=== PATIENT | female | born 1950 | race African-American/Black ===

== ENCOUNTER 2020-03-06 10:39 | Outpatient (CLI) | payer MEDICARE, SELFPAY ==
--- NOTE | ~2020-03-06 | XR_ITS ---
EXAMINATION: XR lg joint inject/asp w image DATE: 03/06/2020 11:39 INDICATION: Left hip osteoarthritis. TECHNIQUE: A time-out was performed to verify the patient's name, date of , and procedure to b e performed. The procedure including the risks, benefits, and alternatives was discussed with the pat ient. Risks discussed included bleeding and infection. The patient understood the risks and agreed to proceed. The skin overlying the left hip joint was prepped and draped in usual sterile fashion. An esthetic was administered with 1% lidocaine subcutaneously. A 22 G needle was advanced under fluoros copic guidance into the joint. Injection of 1 mL of Omnipaque 240 confirmed intra-articular position of the needle. Subsequently, injectate consisting of 3 mL 1% lidocaine and 2 mL 10 mg/mL Kenalog wa s instilled. The needle was removed and the entry site was cleaned and dressed. There were no immed iate complications. Fluoroscopy exposure time was 0.01 minutes. The total number of images was 2. FINDINGS: Real-time fluoroscopy demonstrates the needle in the left hip joint. IMPRESSION: 1. Left hip joint injection of local anesthetic and steroid . Reviewed, dictated and finalized at location A.
== END 2020-03-06 10:40 | disposition home or self-care (01) ==
PROVIDERS: Visit Provider Orthopaedic Surgery
DX: M16.0 Bilateral primary osteoarthritis of hip (principal)
CPT/HCPCS: 20610; 77002; J3301; Q9966

== ENCOUNTER 2021-06-17 06:58 | Outpatient (CLI) | payer MEDICARE, SELFPAY ==
--- NOTE | ~2021-06-17 | CT_ITS ---
EXAMINATION: CT abdomen pelvis w con EXAM DATE: 06/17/2021 08:07 INDICATION: Constipation, swelling, mass, lump. TECHNIQUE: Spiral CT of the abdomen and pelvis was performed following intravenous injection of 100 m L Omnipaque 350. Axial, coronal and sagittal images of the abdomen and pelvis were reviewed. The do se-length product (DLP) for this examination was 1354.45 mGy-cm. The exposure was tailored according to patient size (auto mA exposure control), and iterative reconstruction (ASIR) was used as addition al dose reduction technique. There is no prior study for comparison. FINDINGS: The appendix is dilated up to 9 mm with mild adjacent inflammation. Some irregularity, nodu lar appearance to the wall of the appendix distally. No obstructing stone, and no acute symptoms susp icious for appendicitis have been suggested. Additionally, typically with acute appendicitis the appe ndix appears obstructed and fluid-filled, which this does not. Appendix is located superficially righ t anterolateral aspect for clinical correlation. If patient does not have acute appendicitis, subacut e or chronic appendicitis or possibility of carcinoid of the appendix should be considered. No absces s or pericecal lymphadenopathy. Regardless, histologic correlation may be indicated. The liver, spleen, adrenal glands and pancreas are unremarkable. Gallbladder is unremarkable. No bi liary obstruction. Portal and splenic veins are patent. Kidneys enhance symmetrically. There is no hydronephrosis. Several left renal cysts up to 3 cm. The uterus is not identified and has likely be en surgically resected. Small cystic left ovarian lesion measuring 3.2 cm, possible cystic neoplasm, but would favor benign histology. The bladder is unremarkable. There is no retroperitoneal or pelvi c lymphadenopathy. There is mild scattered arteriosclerotic disease. Small umbilical fat-containing hernia. The stomach and small bowel are unremarkable. There is expected amount of colonic stool. No free i ntraperitoneal gas. The heart is normal in size. There are no pericardial or pleural effusions. T he lung bases are unremarkable. Unilateral left-sided sacroiliac sclerosis, chronic sacroiliitis wit h underlying considerations including psoriatic arthritis, reactive arthritis, rheumatoid arthritis. Although usually symmetric, ankylosing spondylitis, enteropathic arthritis or inflammatory bowel dis ease associated arthropathy are also in the differential diagnosis. IMPRESSION: 1. Abnormal appendix, but does not appear obstructed as typically seen with acute appendicitis. Coul d therefore be more subacute or chronic appendicitis, or could be appendical carcinoid. Recommend rodger gical consult for histologic correlation. 2. Small cystic left ovarian lesion, possible neoplasm but would favor benign histology. 3. Left-sided sacroiliitis. I phoned office of Gray Burns MD, heard message that they were unable to come to phone at thi s time. I left a message with patient name and finding of an abnormal appendix, requested call back t o my office. Reviewed, dictated and finalized at location B. IMPRESSION: 1. Abnormal appendix, but does not appear obstructed as typically seen with ac kiesha appendicitis. Could therefore be more subacute or chronic appendicitis, or could be appendical carcinoid. Recommend surgical consult for histologic correl ation. 2. Small cystic left ovarian lesion, possible neoplasm but would favor benign histology. 3. Left-sided sacroiliitis. I phoned office of Gray Burns MD, heard message that they were unable t o come to phone at this time. I left a message with patient name and finding of an abnormal appendix, requested call back to my office.
[2021-06-17 07:57] LABS: Estimated Glomerular Filt Rate > 60
== END 2021-06-17 06:59 | disposition home or self-care (01) ==
PROVIDERS: Visit Provider Internal Medicine
DX: K59.00 Constipation, unspecified (principal); M79.89 Other specified soft tissue disorders; M53.3 Sacrococcygeal disorders, not elsewhere classified
CPT/HCPCS: 74177; Q9967

== ENCOUNTER 2021-07-21 09:36 | Outpatient (CLI) | payer MEDICARE, SELFPAY ==
--- NOTE | ~2021-07-21 | XR_ITS ---
EXAMINATION: XR chest 2V DATE: 07/21/2021 10:00 INDICATION: Encounter for other preprocedural examination TECHNIQUE: PA and lateral views of the chest were obtained. COMPARISON: None FINDINGS: The lungs are clear with no focal airspace opacities, pulmonary edema, pleural effusion or pneumothor ax. The cardiomediastinal silhouette is normal. There are bridging osteophytes at multiple levels in the spine, consistent with diffuse idiopathic skeletal hyperostosis (DISH). Moderate degenerative ske letal changes at the bilateral shoulders with prior distal right clavicle resection. IMPRESSION: 1. No acute cardiopulmonary disease. Reviewed, dictated and finalized at location A.
--- NOTE | 2021-07-21 09:30 | ECG_ITS ---
Measurements Intervals [place] Rate: 75 P: 52 VA: 210 QRS: -8 QRSD: 82 T: 10 QT: 382 QTc: 428 Interpretive Statements SINUS RHYTHM WITH FIRST DEGREE AV BLOCK INCOMPLETE RIGHT BUNDLE BRANCH BLOCK DELAYED PRECORDIAL R/S TRANSITION VOLTAGE CRITERIA FOR LVH BORDERLINE T WAVE ABNORMALITY- INFERIOR LEADS ABNORMAL ECG Electronically Signed On 07-21-2021 9:58:10 CDT by Colt Melgoza D.O.
[2021-07-21 10:03] LABS: Hemoglobin 11.9 g/dL (12.0-15.0); Mean Corpuscular HGB Conc 32.2 g/dl (32-36); Mean Corpuscular Hemoglobin 25.3 pg (26-34); Mean Corpuscular Volume 78.7 fl (80-100); Mean Platelet Volume 9.3 fl (7.4-10.4); Platelet Count Result 273 k/mm3 (150-375); Red Cell Distribution Width 15.4 % (11.5-14.5); White Blood Count 5.8 K/mm3 (4.5-10.0)
[2021-07-21 10:14] LABS: Anion Gap 9 mmol/L (8-16); Blood Urea Nitrogen 13 mg/dL (7-17); Calcium 9.8 mg/dL (8.4-10.2); Carbon Dioxide 28 mmol/L (22-30); Chloride 103 mmol/L (98-107); Estimated Glomerular Filt Rate > 60; Glucose 124 mg/dL (65-110); Potassium 3.6 mmol/L (3.4-5.0); Sodium 140 mmol/L (137-145)
[2021-07-21 10:45] LABS: Carcinoembryonic Antigen 2.1 ng/mL (0.0-3.0)
== END 2021-07-21 09:37 | disposition home or self-care (01) ==
LOC: ANHSURGERY 09:37
PROVIDERS: Visit Provider Surgery
DX: R93.5 Abnormal findings on diagnostic imaging of other abdominal regions, including retroperitoneum (principal); Z01.818 Encounter for other preprocedural examination; R10.9 Unspecified abdominal pain
CPT/HCPCS: 36415; 71046; 80048; 82378; 85027; 86850; 86900; 86901; 93005

== ENCOUNTER 2021-07-24 01:17 | Day surgery (SDC) | payer MEDICARE, SELFPAY ==
[2021-07-18 12:23] VITALS: BMI 45.7
--- NOTE | 2021-07-22 12:56 | PM.SD2 ---
Same Day Admit/Disch: HPI History of Present Illness Chief complaint: Abnormal CT of Appendix Narrative: Bailey Waldrop is a 71 year old female Who had a CT scan of the abdomen and pelvis ordered by her primary care physician to evaluate a possible hernia as well as some bowel habit changes. The patient does not have a hernia. She does have some constipation. However on her CT scan, she was noted to have an abnormal appendix. The appendix was dilated up to 9 mm. There was also some irregularity and nodular appearance to the wall of the appendix and its distal half. It did not appear to be fluid filled which is common with appendicitis. She was also not having any symptoms of appendicitis. She was seen in the office and due to the irregularities of her appendix on CT, there is concern over no appendiceal neoplasm. She is taken to surgery now electively for laparoscopic appendectomy. [facility] Past Medical History Medical History High cholesterol HTN (hypertension) Type 2 diabetes mellitus Surgical History Surgical History H/O hemorrhoidectomy History of partial hysterectomy Hx of rotator cuff surgery Family History Family History Father Diabetes mellitus Mother Hypertension Glaucoma Sibling Stage 4 lung cancer Social History Social History Smoking status: Never smoker Second hand tobacco smoke exposure: No Alcohol intake: never Alcohol use details: ONE DRINK PER MONTH Substance use: never Living arrangements: with family Spiritual care concerns: No Same Day Admit/Disch: Med Pre-admit Medications Home Medications Medication Instructions Recorded Confirmed Type amlodipine 5 mg tablet 5 mg PO DAILY 06/20/21 07/24/21 History atorvastatin 10 mg tablet 10 mg PO DAILY 06/20/21 07/24/21 History hydrochlorothiazide 12.5 mg tablet 12.5 mg PO DAILY 06/20/21 07/24/21 History losartan 50 mg tablet 50 mg PO DAILY 06/20/21 07/24/21 History metformin 500 mg tablet 500 mg PO DAILY 06/20/21 07/24/21 History latanoprost 1 drp EACH EYE HS 07/18/21 07/24/21 History hydrocodone-acetaminophen 1 - 2 tablet PO Q6H PRN #12 tablet 07/24/21 Rx ibuprofen 600 mg PO Q6H PRN #14 tablet 07/24/21 Rx Exam Const: General: comfortable, no acute distress, alert and awake HENMT: Head: normocephalic and atraumatic Mouth: Yes Normal oral and palatal mucosa present Eyes: Conjunctivae: conjunctivae normal Pupils: Equal, round and reactive pupils present EOM: EOMs intact bilaterally Neck: Neck: normal visual inspection, no lymphadenopathy and nontender Resp: Effort & Inspection: normal respiratory effort Auscultation: clear to auscultation bilaterally Cardio: Rate: regular rate Rhythm: regular rhythm Heart sounds: no gallops, no murmurs and no rubs GI: Inspection: non-distended, obesity, scar and other ( Diastasis) GI Palp: Yes Soft to palpation, No Tenderness to palpation present (GI), No Hepatomegaly present and No Splenomegaly present Auscultation: normal bowel sounds Skin: Lesions: no lesions Rashes: no rashes Neuro: General: no focal motor deficits and CN's II-XI intact bilaterally Cranial nerves: Yes Equal, round and reactive pupils present, Yes Bilaterally intact EOM present, Yes facial symmetry and Yes Midline tongue present Speech: normal speech Motor exam (neuro): 5/5 motor strength present throughout and Motor abnormalities not present Extrem: General: no clubbing, cyanosis or edema and edema Psych: Affect: normal affect Thought process: Normal thought process present Insight: Good insight present (Psych) DS: Summary Time Spent with Patient Time attestation: Total time spent providing and/or coordinating discharge services: DS: Admitting Diagnosis Admitting Diagnosis abnormal ap
--- NOTE | 2021-07-23 12:35 | WPDANESEPPF ---
Anes - Initial Pre Proc Eval Procedure: Operation Date: 07/24/21 11:30 Proposed Procedures p Laparoscopic Appendectomy - Ramón Chambers MD Date/Time: 07/23/21 12:35 Surgeon: Ramón Chambers MD Pre Op Diagnosis: Abnormal CT of Appendix Patient Data Age: 71 Gender: F Height: 1.57 m Weight: 113.4 kg Allergies Allergy/AdvReac Type Severity Reaction Status Date / Time No Known Allergies Allergy Verified 07/24/21 09:40 Home Medications Medication Instructions Recorded Confirmed Type amlodipine 5 mg tablet 5 mg PO DAILY 06/20/21 07/24/21 History atorvastatin 10 mg tablet 10 mg PO DAILY 06/20/21 07/24/21 History hydrochlorothiazide 12.5 mg tablet 12.5 mg PO DAILY 06/20/21 07/24/21 History losartan 50 mg tablet 50 mg PO DAILY 06/20/21 07/24/21 History metformin 500 mg tablet 500 mg PO DAILY 06/20/21 07/24/21 History latanoprost 1 drp EACH EYE HS 07/18/21 07/24/21 History Patient hx anesthesia problems: none Family hx anesthesia problems: none [facility] Past Medical History Medical History High cholesterol HTN (hypertension) Type 2 diabetes mellitus Surgical History Surgical History H/O hemorrhoidectomy History of partial hysterectomy Hx of rotator cuff surgery Family History Family History Father Diabetes mellitus Mother Hypertension Glaucoma Sibling Stage 4 lung cancer Social History Social History Smoking status: Never smoker Second hand tobacco smoke exposure: No Alcohol intake: never Alcohol use details: ONE DRINK PER MONTH Substance use: never Living arrangements: with family Spiritual care concerns: No Anes - Eval Final PreProcedure Day of Procedure 07/23/21 12:35 Patient weight: morbidly obese Heart: regular rate and rhythm Lungs: clear to auscultation and normal air movement Airway: Mallampati scale class III Neurological: alert and oriented Last oral intake: >/= 8 hours ASA classification: III Emergent: no Anesthetic plan: proceed Anesthesia type and monitoring: general ETT and standard monitoring Informed Consent: The patient's anesthetic plan and its attendant risks and benefits were discussed with the patient/family/POA. Questions were solicited and answers provided to the satisfaction of the patient/family/POA.
[2021-07-24] VITALS (14 sets, daily range): BP systolic 105–156; BP diastolic 49–86; PULSE 60–81; RESP 16–21; TEMP 36.3; O2SAT 94–100
[2021-07-24] MEDS: LACTATED RINGERS 1,000 ML 30 ML IV CONT ×2 (10:03→13:27)
--- NOTE | 2021-07-24 10:17 | WPDHPUPDATE1 ---
History and Physical Update Update Date/Time: 07/24/21 10:17 History and Physical has been reviewed, including an updated exam of the patient. There are NO changes in the patient's condition. Risks, benefits, and alternatives have been discussed and questions answered. Patient agrees to proceed with procedure.
[2021-07-24 10:35] LABS: Glucose Point of Care 123 mg/dl (65-105)
[2021-07-24] MEDS: ceFAZolin 2 GM/D5W 50 ML 2 GM/50 ML BAG IVPB (11:59)
[2021-07-24] MEDS: BUPIVACAINE/EPINEPHRINE 0.25% 10 ML VIAL 30 ML INFILTRATE (13:12)
[2021-07-24] MEDS: fentaNYL CITRATE INJ (*CRX) 100 MCG/2 ML VIAL 25 MCG IV PUSH ×4 (13:44→14:27)
--- NOTE | 2021-07-24 13:47 | P.OP_ITS ---
Procedure Note - Detailed Date of Procedure 07/24/21 Pre-op Diagnosis Abnormal CT of Appendix Post-op Diagnosis same Procedure Performed Laparoscopic appendectomy Surgeon Ramón Chambers MD Director Of Development And Marketing JESSICA Li Anesthesia general and local Indications Patient had a CT scan of the abdomen pelvis for other reasons. Her appendix was dilated with irregularity. There was no suggestion of acute appendicitis by clinical findings and concern exists regarding a neoplasm of the appendix. She is taken to surgery now for laparoscopic appendectomy. Findings There appeared to be diverticuli in the mid appendix. No gross evidence of ma lignancy Description of Procedure Patient was taken to surgery and induced into general anesthesia. The abdomen is prepped and draped. Trocars were placed in the usual fashion using 0.25% Marcaine with epinephrine an applied Medical optical trocars. There were some anterior abdominal wall adhesions of omentum that were taken down sharply. There was no bleeding associated with this. Patient was then placed in Trendelenburg with the right-side elevated. Some more adhesions to the cecum and distal ileum were taken down. The appendix was then found just distal to the cecum. It was entwined in some adhesions as well. These adhesions were taken down and the appendix was slowly mobilized. The mesoappendix was cauterized and divided. The appendiceal artery was Narayan eyes and divided. Bleeding was minimal. The base the appendix was skeletonized. A Vicryl endoloop was used to ligate the base of the appendix. The appendix was amputa josh just above the ligature. The mucosa of the appendiceal stump was thoroughly cauterized. The appendix was immediately placed in an Endo-Catch bag. It was brought through the 10 11 lower abdominal trocar. The trocar was replaced and then we reviewed the areas of dissection in the right lower quadrant. There was no evidence of bleeding or other problems. The Narayan cone and Narayan-Vishnu suture pass device was then used to close the fascia at the 10 11 lower abdominal port. We then evacuated CO2 and removed the trocar sleeves. All skin wounds were closed with subcuticular 4-0 Monocryl skin suture. The wounds were dressed with Exofin surgical adhesive. The patient was awakened and taken to recovery in good condition. Sponge needle counts were correct x2. Estimated Blood Loss -10.0 Drains No Packing No Pathology yes (Appendix) Complications No immediate complications Condition stable Disposition PACU
[2021-07-24 13:49] LABS: Glucose Point of Care 151 mg/dl (65-105)
[2021-07-24] MEDS: oxyCODONE HCL (*CRX) 5 MG TAB IR PO (15:05)
== END 2021-07-24 16:30 | disposition home or self-care (01) ==
PROVIDERS: Visit Provider Surgery
PROC: 0DTJ4ZZ Resection of Appendix, Percutaneous Endoscopic Approach (ICD-10-PCS; CPT 44970; principal; 2021-07-24 11:30)
DX: K38.8 Other specified diseases of appendix (principal); I10 Essential (primary) hypertension; E78.00 Pure hypercholesterolemia, unspecified; E11.9 Type 2 diabetes mellitus without complications; M62.08 Separation of muscle (nontraumatic), other site; Z79.84 Long term (current) use of oral hypoglycemic drugs
CPT/HCPCS: 44970; 82948; 88304; A9270; J0690; J1100; J1170; J2250; J2405; J2704; J3010; J7120

== ENCOUNTER 2021-07-27 09:09 | Inpatient (IN) | payer MEDICARE, SELFPAY ==
[2021-07-27] VITALS (10 sets, daily range): BP systolic 134–174; BP diastolic 74–99; PULSE 78–92; RESP 14–18; TEMP 36.8–37.5; O2SAT 94–100
--- NOTE | ~2021-07-27 | CT_ITS ---
EXAMINATION: CT abdomen pelvis wo con EXAM DATE: 07/30/2021 13:22 INDICATION: Epigastric pain and nausea; SBO. TECHNIQUE: Spiral CT of the abdomen and pelvis was performed without contrast. Axial, coronal and s agittal images of the abdomen and pelvis were reviewed. The dose-length product (DLP) for this exami nation was 1264.79 mGy-cm. The exposure was tailored according to patient size (auto mA exposure con trol), and iterative reconstruction (ASIR) was used as additional dose reduction technique. Compariso n is made to prior examination from 07/27/2021. FINDINGS: Previously seen small bowel herniated at the umbilicus has been reduced with significant in terval improvement in small bowel distention. There is small focus of gas in the hernia site of uncer tain etiology. There is small gastroesophageal hiatal hernia. The liver, spleen, adrenal glands and pancreas are unremarkable. There are gallstones within an otherwise unremarkable gallbladder. No ev idence of obstructive biliary disease. Portal and splenic veins are patent. Kidneys enhance symmetr ically. There is no hydronephrosis. There are left renal cysts. Probable left renal midpole hemorrha gic cyst. No obstructive nephropathy or calcifications. Chronic 2.8 cm left ovarian cystic mass, cou ld be cystic ovarian neoplasm but would favor benign histology. The bladder is unremarkable. There is no retroperitoneal or pelvic lymphadenopathy. There is mild scattered arteriosclerotic disease. There are no findings to suggest appendicitis. The stomach and small bowel are unremarkable. There is expected amount of colonic stool. No free intraperitoneal gas. The heart is normal in size. T here are no pericardial or pleural effusions. The lung bases are unremarkable. There is left-sided predominant chronic sacroiliitis IMPRESSION: 1. Reduction of small bowel herniation with improvement in the mild to moderate residual small bowel dilation, could be ileus. 2. Chronic small left ovarian cystic mass. Could consider [employer] consult for MRI. 3. Small gastroesophageal hiatal hernia. 4. Chronic left sacroiliitis. Reviewed, dictated and finalized at location A. IMPRESSION: 1. Reduction of small bowel herniation with improvement in the mild to moderat e residual small bowel dilation, could be ileus. 2. Chronic small left ovarian cystic mass. Could consider FLE[employer] SAL[employer]ERSON consult for MRI. 3. Small gastroesophageal hiatal hernia. 4. Chronic left sacroiliitis.
--- NOTE | ~2021-07-27 | CT_ITS ---
EXAMINATION: CT abdomen pelvis w con DATE: 07/27/2021 11:23 INDICATION: Abdominal pain and vomiting post recent appendectomy. TECHNIQUE: Computed tomography (CT) of the abdomen and pelvis was performed with 100 mL Omnipaque-350 intravenous contrast. Automated exposure control and iterative reconstruction technique were employe d. The dose-length product was 1261.57 mGy-cm. COMPARISON: 06/17/2021 FINDINGS: Minimal basilar atelectasis at the right middle lobe and lingula. Heart size is normal. No pericardia l or pleural effusion. Edematous wall thickening in the visualized distal esophagus consistent with e sophagitis likely related to reflux/vomiting. Liver, gallbladder, spleen, pancreas and bilateral adre nal glands are normal. Bilateral renal cysts, the largest on the left measuring 3.2 cm. Postoperative change of interval appendectomy. There is a small bowel obstruction with mildly dilated small bowel proximal to a very short herniated segment of bowel which extends through a likely trochar access sit e within the inferior aspect of a small otherwise fat-containing umbilical hernia. There is mild sha atous wall thickening of the herniated small bowel which extends into the immediately more proximal l oop of small bowel and a short distance into the decompressed small bowel distal to the site of obstr uction. Bladder is normal. The uterus is not identified and has likely been surgically resected. Unch anged 2.8 cm cystic lesion at the left adnexa with suggestion of thin internal septations which could represent either several ovarian cysts or a cystic neoplasm. No abscess. Trace amount of likely reac tive free fluid along the small bowel mesentery. No pneumatosis or free intraperitoneal gas. Residual small likely reactive ileocolic chain lymph nodes. No pathologically enlarged abdominal or pelvic ly mphadenopathy. Stranding and a few scattered foci of gas in the fat of the anterior abdominal wall li william related to recent surgery. Again seen is asymmetric joint space narrowing with prominent subarti cular sclerosis at the left sacroiliac joint. IMPRESSION: 1. Small bowel obstruction secondary to herniation of a very short segment of small bowel through a l ikely trocar access site within the inferior aspect of a small otherwise fat-containing umbilical her pearl. There is some edematous wall thickening of the bowel within and immediately proximal and distal to the site of the herniation and could not exclude incarceration with secondary ischemia. Dr. Hargrove rt discussed these findings with Florence Albert at 11:30 AM. 2. Prominent wall thickening the distal esophagus likely related to reflux/vomiting. 3. 2.8 cm cystic left ovarian lesion with suggestion of thin internal septations which could represen t either multiple ovarian cysts or cystic ovarian neoplasm more likely benign than malignant. Recomme nd gynecologic consultation and could consider either pelvic ultrasound or pre and postcontrast MRI f or further evaluation. 4. Asymmetric left-sided sacroiliitis with differential as detailed on prior report. Reviewed, dictated and finalized at location A. IMPRESSION: 1. Small bowel obstruction secondary to herniation of a very short segment of s mall bowel through a likely trocar access site within the inferior aspect of a small otherwise fat-containing umbilical hernia. There is some edematous wall t hickening of the bowel within and immediately proximal and distal to the site o f the herniation and could not exclude incarceration with secondary ischemia. Stephanie Dos Santos discussed these findings with Florence Albert at 11:30 AM. 2. Prominent wall thickening the distal esophagus likely related to reflux/vomi ting. 3. 2.8 cm cystic left ovarian lesion with suggestion of thin internal septation s whi
--- NOTE | ~2021-07-27 | XR_ITS ---
EXAMINATION: XR chest 2V DATE: 07/27/2021 11:10 INDICATION: Rest pain, epigastric pain and vomiting TECHNIQUE: frontal and lateral views of the chest were obtained. COMPARISON: Chest radiograph dated 07/21/2021 FINDINGS: The lungs remain clear with no focal airspace opacities, pulmonary edema, pleural effusion or pneumot horax. The cardiomediastinal silhouette is normal. There are bridging osteophytes at multiple levels in the spine, consistent with diffuse idiopathic skeletal hyperostosis (DISH). Distal right clavicle excision and moderate right glenohumeral osteoarthritis. IMPRESSION: 1. No acute cardiopulmonary disease. Reviewed, dictated and finalized at location A.
--- NOTE | ~2021-07-27 | XR_ITS ---
EXAMINATION: XR abdomen NG/feed tube insert DATE: 07/27/2021 12:33 INDICATION: NG tube placement for small bowel obstruction. TECHNIQUE: A supine view of the abdomen and lower chest was obtained for evaluation of feeding tube placement. COMPARISON: None. FINDINGS: Nasogastric tube tip in proximal side port in the body of the stomach. Gas is seen within the transve rse colon as well as a nondilated loop of small bowel extending across the upper abdomen. The lower a bdomen and pelvis are excluded from the [id number]. Visualized mid to lower lung zones are clear. Heart size is normal. IMPRESSION: 1. Nasogastric tube in the stomach. Reviewed, dictated and finalized at location A.
[2021-07-27 09:36] LABS: Basophils Percent Auto 0.1 % (0.2-1.2); Hematocrit 40.3 % (37.0-47.0); Hemoglobin 13.1 g/dL (12.0-15.0); Immature Granulocyte Absolute 0.05 K/mm3 (0.00-0.031); Immature Granulocyte Percent A 0.5 % (0-0.5); Lymphocytes Absolute Auto 2.38 K/mm3 (0.9-3.2); Lymphocytes Percent Auto 24.5 % (18.3-44.2); Mean Corpuscular HGB Conc 32.5 g/dl (32-36); Mean Corpuscular Hemoglobin 24.6 pg (26-34); Mean Corpuscular Volume 75.8 fl (80-100); Mean Platelet Volume 9.8 fl (7.4-10.4); Monocytes Absolute Auto 0.8 K/mm3 (0.1-0.6); Monocytes Percent Auto 8.3 % (2.6-8.5); Neutrophils Absolute Auto 6.5 K/mm3 (1.3-6.7); Neutrophils Percent Auto 66.6 % (45.5-73.1); Platelet Count Result 355 k/mm3 (150-375); Red Blood Count 5.32 M/mm3 (4.2-5.4); Red Cell Distribution Width 15.1 % (11.5-14.5); White Blood Count 9.7 K/mm3 (4.5-10.0)
[2021-07-27 09:48] LABS: Alanine Aminotransferase 17 U/L (4-35); Alkaline Phosphatase 79 U/L (38-126); Anion Gap 10 mmol/L (8-16); Aspartate Amino Transferase 28 U/L (14-36); Bilirubin,Total 0.6 mg/dL (0.2-1.3); Blood Urea Nitrogen 17 mg/dL (7-17); Calcium 9.4 mg/dL (8.4-10.2); Carbon Dioxide 27 mmol/L (22-30); Chloride 101 mmol/L (98-107); Estimated CRCL calculation 50 ml/min; Estimated Glomerular Filt Rate 60; Glucose 197 mg/dL (65-110); Lipase 27 U/L (23-300); Potassium 3.2 mmol/L (3.4-5.0); Sodium 138 mmol/L (137-145)
[2021-07-27] MEDS: SODIUM CHLORIDE 0.9% IV 1,000 ML 999 ML IV CONT (10:18)
[2021-07-27] MEDS: ONDANSETRON INJ 4 MG/2 ML VIAL IV PUSH (10:49)
--- NOTE | 2021-07-27 10:51 | ECG_ITS ---
Measurements Intervals [place] Rate: 82 P: 6 LA: 149 QRS: -24 QRSD: 84 T: 34 QT: 402 QTc: 472 Interpretive Statements SINUS RHYTHM BASELINE ARTIFACT- II, III, AVR, AVF, V3-V6 NORMAL ECG Electronically Signed On 07-27-2021 12:17:47 CDT by Colt Melgoza D.O.
--- NOTE | 2021-07-27 10:55 | ED.NAVMDI ---
HPI - Nausea/Vomiting/Diarrhea General Chief complaint: Nausea/Vomiting/Diarrhea <Florence Albert PA-C - Last Filed: 07/27/21 12:12> Stated complaint: post appendectomy, n/v <Florence Albert PA-C - Last Filed: 07/27/21 12:12> Time Seen by Provider: 07/27/21 10:09 <JAZZMINE Rosen Last Filed: 07/27/21 12:12> Source: patient <JAZZMINE Rosen Last Filed: 07/27/21 12:12> Mode of arrival: ambulatory <JAZZMINE Rosen Last Filed: 07/27/21 12:12> Limitations: no limitations <JAZZMINE Rosen Last Filed: 07/27/21 12:12> History of Present Illness HPI Narrative: This is a 71-year-old female that presents to the emergency department for nausea and vomiting. Reports she had a laparoscopic appendectomy with Dr. Chambers on 07/24. Reports the next night she started vomiting. She has intermittently been vomiting since. The vomiting and pain worsened this morning which prompted her to be seen. She reports some upper abdominal pain mostly. Also reports she is having burning pain in her chest that is intermittent. Denies fever, or dysuria. <JAZZMINE Rosen Last Filed: 07/27/21 12:12> Related Data Home medications: Home Medications Medication Instructions Recorded Confirmed amlodipine 5 mg tablet 5 mg PO DAILY 06/20/21 07/24/21 atorvastatin 10 mg tablet 10 mg PO DAILY 06/20/21 07/24/21 hydrochlorothiazide 12.5 mg tablet 12.5 mg PO DAILY 06/20/21 07/24/21 losartan 50 mg tablet 50 mg PO DAILY 06/20/21 07/24/21 metformin 500 mg tablet 500 mg PO DAILY 06/20/21 07/24/21 latanoprost 1 drp EACH EYE HS 07/18/21 07/24/21 <JAZZMINE Rosen Last Filed: 07/27/21 12:12> Allergies/Adverse reactions: Allergies Allergy/AdvReac Type Severity Reaction Status Date / Time No Known Allergies Allergy Verified 07/27/21 09:37 <Florence Albert PA-C - Last Filed: 07/27/21 12:12> Review of Systems Review of Systems: CONSTITUTIONAL: Denies fever CARDIOVASCULAR: Reports chest pain. Denies edema. RESPIRATORY: Denies dyspnea. GASTROINTESTINAL: Reports abdominal pain, nausea, vomiting GENITOURINARY: Denies dysuria <Florence Albert PA-C - Last Filed: 07/27/21 12:12> All systems reviewed & are unremarkable except as noted in HPI and below <Florence Albert PA-C - Last Filed: 07/27/21 12:12> PMFSH Past Medical History Medical History: Medical History High cholesterol HTN (hypertension) Type 2 diabetes mellitus <Florence Albert PA-C - Last Filed: 07/27/21 12:12> Surgical History Surgical History: Surgical History H/O hemorrhoidectomy History of partial hysterectomy Hx of rotator cuff surgery <Florence Albert PA-C - Last Filed: 07/27/21 12:12> Family History Family History: Family History Father Diabetes mellitus Mother Hypertension Glaucoma Sibling Stage 4 lung cancer <Florence Albert PA-C - Last Filed: 07/27/21 12:12> Social History Social History: Social History Smoking status: Never smoker Second hand tobacco smoke exposure: No Alcohol intake: never Alcohol use details: ONE DRINK PER MONTH Substance use: never Spiritual care concerns: No <JAZZMINE Rosen Last Filed: 07/27/21 12:12> Exam Narrative: GENERAL: Elderly, well-nourished, actively vomiting HEAD: Normocephalic, atraumatic. EYES: EOMI. CHEST: Clear to auscultation. No respiratory distress. No wheezes rales or rhonchi HEART: Regular rate and rhythm. No murmur heard. Normal peripheral pulses. ABDOMEN: Soft, nondistended, normal active bowel sounds. Tender to palpation throughout the abdomen, without guarding. Incisions appear to be well healing without surrounding erythema or abnormal drainage EXTREMITIES: Normal range
[2021-07-27] MEDS: PANTOPRAZOLE SODIUM IV 40 MG VIAL IV PUSH (11:26)
[2021-07-27 11:36] LABS: Troponin I < 0.012 ng/mL (0.000-0.034)
[2021-07-27 12:01] LABS: Partial Thromboplastin Time 28.6 SECONDS (22.3-36.8); Prothrombin Time 13.1 Seconds (11.1-14.7)
[2021-07-27] MEDS: PROMETHAZINE HCL 25 MG/ML AMPUL 12.5 MG IV PUSH (12:13)
[2021-07-27] MEDS: SODIUM CHLORIDE 0.9% IV 50 ML (12:13)
[2021-07-27] MEDS: BENZOCAINE/TETRACAINE SPRAY (*SP) 56 ML AEROSOL 1 SPRAY (12:18)
--- NOTE | 2021-07-27 12:22 | PM.IMHP ---
H&P: HPI History of Present Illness Date/Time: 07/27/21 12:22 Chief Complaint: Intractable nausea and vomiting. Narrative: This is a 71-year-old woman who presented to the emergency department with intractable nausea vomiting. She just recently underwent laparoscopic appendectomy here on 07/24/[address] Chambers. She was feeling fine that day after the surgery, but then in the afternoon on 07/25/2021 she began experiencing nausea and vomiting. She is complaining of some upper abdominal pain, but did not notice any particular worsening pain or a lump at any of her incisions. She denies feeling a pop or sharp pain when her nausea started. She denies any straining other than retching with nausea and vomiting. Her daughter called the exchange and discussed her symptoms with me over the phone last night. Due to her having nausea and vomiting and unable to keep any liquids down for the past 2 days I had recommended initially for her to come back to the emergency department. Her daughter wanted to see if she could try ondansetron 1st to help with the nausea. I went ahead and sent a prescription for ondansetron to her pharmacy but again recommended that she come to the emergency department if she does not have any relief within 30 minutes to a couple hours. A CT of her abdomen and pelvis was done in the emergency department today and this shows evidence of a small-bowel obstruction caused by a loop of small bowel being incarcerated in 1 of the port sites. Review of Systems Review of Systems: All systems reviewed & are unremarkable except as noted in HPI and below Constitutional: Constitutional: Denies chills and Denies fever(s) Cardiovascular: Cardiovascular: Denies chest pain and Denies dyspnea Respiratory: Respiratory: Denies dyspnea Gastrointestinal: Gastrointestinal: Reports as per HPI [facility] Past Medical History Medical History (Updated 07/27/21 @ 12:42 by Antoni Whitaker DO) High cholesterol HTN (hypertension) Type 2 diabetes mellitus Surgical History Surgical History (Updated 07/27/21 @ 12:38 by Antoni Whitaker DO) H/O hemorrhoidectomy History of laparoscopic appendectomy 07/24/2021 History of partial hysterectomy Hx of rotator cuff surgery Family History Family History Father Diabetes mellitus Mother Hypertension Glaucoma Sibling Stage 4 lung cancer Social History Social History Smoking status: Never smoker Second hand tobacco smoke exposure: No Alcohol intake: never Alcohol use details: ONE DRINK PER MONTH Substance use: never Spiritual care concerns: No Meds Home Medications and Allergies Home Medications Medication Instructions Recorded Confirmed Type amlodipine 5 mg tablet 5 mg PO DAILY 06/20/21 07/24/21 History atorvastatin 10 mg tablet 10 mg PO DAILY 06/20/21 07/24/21 History hydrochlorothiazide 12.5 mg tablet 12.5 mg PO DAILY 06/20/21 07/24/21 History losartan 50 mg tablet 50 mg PO DAILY 06/20/21 07/24/21 History metformin 500 mg tablet 500 mg PO DAILY 06/20/21 07/24/21 History latanoprost 1 drp EACH EYE HS 07/18/21 07/24/21 History hydrocodone-acetaminophen 1 - 2 tablet PO Q6H PRN #12 tablet 07/24/21 Rx ibuprofen 600 mg PO Q6H PRN #14 tablet 07/24/21 Rx ondansetron 4 mg disintegrating 4 mg PO Q6H PRN #10 tablet 07/26/21 Rx tablet Allergies Allergy/AdvReac Type Severity Reaction Status Date / Time No Known Allergies Allergy Verified 07/27/21 09:37 Vital Signs Vital Signs - 24 hr 07/27/21 09:33 Temperature 37.0 C Pulse Rate 92 Respiratory Rate 16 Blood Pressure 134/74 Pulse Oximetry 97 Exam Const: General: cooperative and no acute distress Nutritional Appearance: average body habitus Orientation/consciousness: patient oriented x3 HENMT: Head: normal to inspection Ears: hearing grossly normal bilaterally Mouth: Yes Normal
--- NOTE | 2021-07-27 13:49 | WPDHPUPDATE1 ---
History and Physical Update Update Date/Time: 07/27/21 13:49 History and Physical has been reviewed, including an updated exam of the patient. There are NO changes in the patient's condition. Risks, benefits, and alternatives have been discussed and questions answered. Patient agrees to proceed with procedure.
[2021-07-27] MEDS: ceFAZolin 2 GM/D5W 50 ML 2 GM/50 ML BAG IVPB ×2 (14:05→21:03)
--- NOTE | 2021-07-27 14:05 | WPDANESEPPF ---
Anes - Initial Pre Proc Eval Procedure: Operation Date: 07/27/21 13:15 Proposed Procedures p Ventral Incisional Hernia Repair - Antoni Whitaker DO Date/Time: 07/27/21 14:05 Surgeon: Antoni Whitaker DO Pre Op Diagnosis: post appendectomy, n/v Patient Data Age: 71 Gender: F Height: 1.57 m Weight: 113.9 kg Last Vital Signs Temp 36.8 C 07/27/21 12:35 Pulse 88 07/27/21 12:35 Resp 16 07/27/21 12:35 BP 158/87 H 07/27/21 12:35 Pulse Ox 98 07/27/21 12:35 Allergies Allergy/AdvReac Type Severity Reaction Status Date / Time No Known Allergies Allergy Verified 07/27/21 09:37 Home Medications Medication Instructions Recorded Confirmed Type amlodipine 5 mg tablet 5 mg PO DAILY 06/20/21 07/24/21 History atorvastatin 10 mg tablet 10 mg PO DAILY 06/20/21 07/24/21 History hydrochlorothiazide 12.5 mg tablet 12.5 mg PO DAILY 06/20/21 07/24/21 History losartan 50 mg tablet 50 mg PO DAILY 06/20/21 07/24/21 History metformin 500 mg tablet 500 mg PO DAILY 06/20/21 07/24/21 History latanoprost 1 drp EACH EYE HS 07/18/21 07/24/21 History hydrocodone-acetaminophen 1 - 2 tablet PO Q6H PRN #12 tablet 07/24/21 Rx ibuprofen 600 mg PO Q6H PRN #14 tablet 07/24/21 Rx ondansetron 4 mg disintegrating 4 mg PO Q6H PRN #10 tablet 07/26/21 Rx tablet Laboratory Tests 07/27/21 07/27/21 07/27/21 09:30 09:30 09:30 WBC 9.7 K/mm3 K/mm3 (4.5-10.0) RBC 5.32 M/mm3 M/mm3 (4.2-5.4) Hgb 13.1 g/dL g/dL (12.0-15.0) Hct 40.3 % % (37.0-47.0) MCV 75.8 fl L fl (80-100) MCH 24.6 pg L pg (26-34) MCHC 32.5 g/dl g/dl (32-36) RDW 15.1 % H % (11.5-14.5) Plt Count 355 k/mm3 k/mm3 (150-375) MPV 9.8 fl fl (7.4-10.4) Immature Gran % (Auto) 0.5 % % (0-0.5) Neut % (Auto) 66.6 % % (45.5-73.1) Lymph % (Auto) 24.5 % % (18.3-44.2) [place] % (Auto) 8.3 % % (2.6-8.5) Eos % (Auto) 0.0 % % (0-4.4) Baso % (Auto) 0.1 % L % (0.2-1.2) Lymph # (Auto) 2.38 K/mm3 K/mm3 (0.9-3.2) [place] # (Auto) 0.8 K/mm3 H K/mm3 (0.1-0.6) Eos # (Auto) 0.0 K/mm3 K/mm3 (0-0.3) Baso # (Auto) 0.0 K/mm3 K/mm3 (0.0-0.1) Abs Immat Gran (auto) 0.05 K/mm3 H K/mm3 (0.00-0.031) Absolute Neuts (auto) 6.5 K/mm3 K/mm3 (1.3-6.7) Absolute Nucleated RBC 0.0 K/mm3 K/mm3 (0.0-0.012) Nucleated RBC % 0.0 % % (0.0-0.2) PT INR APTT Sodium 138 mmol/L mmol/L (137-145) Potassium 3.2 mmol/L L mmol/L (3.4-5.0) Chloride 101 mmol/L mmol/L (98-107) Carbon Dioxide 27 mmol/L mmol/L (22-30) Anion Gap 10 mmol/L mmol/L (8-16) BUN 17 mg/dL mg/dL (7-17) Creatinine 1.10 mg/dL H mg/dL (0.7-1.0) Estim Creat Clear Calc 50 ml/min ml/min Estimated GFR 60 (59 - ) Glucose 197 mg/dL H mg/dL (65-110) Calcium 9.4 mg/dL mg/dL (8.4-10.2) Total Bilirubin 0.6 mg/dL mg/dL (0.2-1.3) AST 28 U/L U/L (14-36) ALT 17 U/L U/L (4-35) Alkaline Phosphatase 79 U/L U/L (38-126) Troponin I < 0.012 ng/mL ng/mL (0.000-0.034) Total Protein 8.0 g/dL g/dL (6.3-8.2) Albumin 4.0 g/dL g/dL (3.5-5.1) Lipase 27 U/L U/L (23-300) 07/27/21 11:36 WBC RBC Hgb Hct MCV MCH MCHC RDW Plt Count MPV Immature Gran % (Auto) Neut % (Auto) Lymph % (Auto) [place] % (Auto) Eos % (Auto) Baso % (Auto) Lymph # (Auto) [place] # (Auto) Eos # (Auto) Baso # (Auto) Abs Immat Gran (auto) Absolute Neuts (auto) Absolute Nucleated RBC Nucleated RBC % PT 13.1 Seconds Seconds
[2021-07-27 14:26] LABS: Lactic Acid Reflex 2.2 mmol/L (0.7-2.1)
[2021-07-27] MEDS: BUPIVACAINE/EPINEPHRINE 0.25% 10 ML VIAL 30 ML INFILTRATE (14:38)
[2021-07-27] MEDS: LACTATED RINGERS 1,000 ML 30 ML IV CONT (14:53)
--- NOTE | 2021-07-27 15:00 | P.OP_ITS ---
Procedure Note - Detailed Date of Procedure 07/27/21 Pre-op Diagnosis Incarcerated incisional hernia, small-bowel obstruction, status post laparoscopic appendectomy. Post-op Diagnosis same Procedure Performed Incarcerated incisional hernia repair Surgeon Antoni Whitaker, DO Anesthesia general and local ( 0.25% bupivacaine with epinephrine) Indications this is a 71-year-old woman who is status post laparoscopic appendectomy on 07/24/2021. [facility] She continued to have nausea and vomiting for 2 days was unable to keep anything down. She presented to the emergency department today and CT of her abdomen and pelvis was performed. This showed evidence of small bowel protruding into 1 of the recent port site incisions causing a small-bowel obstruction. Discussions were made with the patient about these findings and treatment options and decision was made to proceed with emergent incarcerated incisional hernia repair. Findings Incarcerated incisional hernia repair was performed. The infraumbilical incision appeared to be containing a loop of small bowel on the CT. Due to patient's large body habitus, no palpable bulge was noted, but she did have some erythema around this incision and was more tender in this area. The laparoscopic incision was extended to about 2 in vertically and careful dissection was carried out down to the incarcerated hernia. The loop of bowel that was incarcerated appeared to be healthy and viable. This was reduced with gentle manual palpation. The fascial edges were inspected and decision was made to close this using 1 PDS [id number] sutures. Two sutures were placed to approximate the fascia. Description of Procedure Procedure as well as risks, benefits, and alternatives were discussed with the patient. Written consent was obtained and placed in chart prior to procedure. Patient was brought back to surgical suite. She was placed supine on operating table. Time-out was done to confirm patient and procedure. She was then intubated by the anesthesia department. Her abdomen was prepped and draped in sterile fashion using chlorhexidine prep. A 4 cm vertical incision was made over the recent laparoscopic incision using a 15 blade scalpel. Electrocautery was used for hemostasis and for careful dissection through the subcutaneous fat. I was then able to carefully palpate down along the tract from the previous laparoscopic port and identify the small bowel that was incarcerated within the hernia. The suture from the previous fascial closure was removed. This nicho eared to free up the small bowel enough to allow it to easily reduce. The bowel appeared healthy and viable, and there was no evidence of ischemic changes or necrosis. The bowel was reduced completely and the fascial edges were then carefully inspected. I then reapproximated the fascia using 1 PDS [id number] suture. Total of 2 sutures were placed vertically to approximate the fascial edges. The repair was inspected and appeared secure. The subcutaneous space was then irrigated with sterile saline. 0.25% bupivacaine with epinephrine was infiltrated locally around the fascia and subc utaneous space. Vita's fascia was reapproximated using 3-0 Vicryl simple interrupted sutures. The deep dermis was reapproximated using 3-0 Vicryl simple interrupted sutures. The skin was then approximated using 4 0 Monocryl running subcuticular suture. Exofin glue was then applied on top. The patient was then awakened from anesthesia, extubated, and transferred to recovery. Estimated Blood Loss 5 Complications No immediate complications Condition stable Disposition observation
[2021-07-27 15:10] LABS: Glucose Point of Care 143 mg/dl (65-105)
--- NOTE | 2021-07-27 16:13 | ADMGEN ---
This patient, Bailey Waldrop, was admitted to [facility] Surg Room 313-01. Patient/family oriented to hospital policies and general routines including ID bracelet, bed and alarms, visiting hours, pain management, procedures, bathroom and other care routines, personal items, smoking policy, room service/diet, and visiting hours. Information on how to activate the Rapid Response Team has been discussed. Patient/Family are encouraged to report perceived risks to care and to ask questions if they do not understand what they are told or what they should do.
[2021-07-27] MEDS: LACTATED RINGERS 1,000 ML 100 ML IV CONT (16:33)
[2021-07-27 17:13] LABS: Reflex Lactic Acid Yes or No Add Lactic
[2021-07-27] MEDS: ACETAMINOPHEN 500 MG TABLET PO (21:17)
[2021-07-27 22:44] LABS: Glucose Point of Care 187 mg/dl (65-105)
[2021-07-28] VITALS (8 sets, daily range): BP systolic 133–184; BP diastolic 57–93; PULSE 65–82; RESP 18–20; TEMP 36.2–37.4; O2SAT 96–99
[2021-07-28] MEDS: HYDROcodone/acetaminophen (*CRX) 5-325 MG TABLET 1 TAB PO ×2 (04:25→21:53)
[2021-07-28] MEDS: ceFAZolin 2 GM/D5W 50 ML 2 GM/50 ML BAG IVPB ×2 (05:08→14:07)
[2021-07-28 07:25] LABS: Hemoglobin 11.4 g/dL (12.0-15.0); Mean Corpuscular HGB Conc 32.6 g/dl (32-36); Mean Corpuscular Hemoglobin 24.8 pg (26-34); Mean Corpuscular Volume 76.1 fl (80-100); Mean Platelet Volume 9.8 fl (7.4-10.4); Platelet Count Result 305 k/mm3 (150-375); White Blood Count 8.5 K/mm3 (4.5-10.0)
[2021-07-28 08:05] LABS: Anion Gap 7 mmol/L (8-16); Blood Urea Nitrogen 10 mg/dL (7-17); Calcium 8.8 mg/dL (8.4-10.2); Carbon Dioxide 30 mmol/L (22-30); Chloride 102 mmol/L (98-107); Estimated CRCL calculation 68 ml/min; Estimated Glomerular Filt Rate > 60; Glucose 145 mg/dL (65-110); Sodium 139 mmol/L (137-145)
[2021-07-28] MEDS: polyethylene glycoL 3350 17 GM POWD.PACK PO (08:27)
[2021-07-28 11:50] LABS: Glucose Point of Care 174 mg/dl (65-105)
--- NOTE | 2021-07-28 12:53 | PM.PNGS ---
Progress Note: A&P Assessment and Plan (1) Incarcerated incisional hernia: Code(s): K43.0 - Incisional hernia with obstruction, without gangrene Status: Acute Assessment and Plan: Slowly improving. Will advance to full liquids for dinner. Possibly home tomorrow if bloating improved and tolerating diet. (2) SBO (small bowel obstruction): Code(s): K56.609 - Unspecified intestinal obstruction, unspecified as to partial versus complete obstruction Status: Acute (3) History of laparoscopic appendectomy: Code(s): Z90.49 - Acquired absence of other specified parts of digestive tract Status: Acute Subjective Subjective Date/Time Seen: 07/28/21 12:53 Interval history: Still feeling a little bloated, but tolerating clears without nausea/vomiting. Passing flatus, no BM yet. Pain controlled. Exam GI: Auscultation: normal bowel sounds Other: Mild ecchymosis around lower incision. Intact with glue. Objective Data Vital Signs Vital Signs: Vital Signs - 24 hr 07/27/21 14:53 07/27/21 15:05 07/27/21 15:15 Temperature 36.8 C Pulse Rate 82 82 79 Respiratory Rate 16 18 16 Blood Pressure 147/77 H 163/88 H 159/99 H Pulse Oximetry 100 100 100 07/27/21 15:30 07/27/21 15:45 07/27/21 17:23 Temperature 37.1 C Pulse Rate 84 78 81 Respiratory Rate 18 15 14 Blood Pressure 167/86 H 174/86 H 159/87 H Pulse Oximetry 98 98 94 07/27/21 17:31 07/27/21 21:31 07/28/21 01:31 Temperature 37.0 C 37.5 C 36.5 C Pulse Rate 78 82 65 Respiratory Rate 14 18 18 Blood Pressure 155/89 H 155/78 H 163/77 H Pulse Oximetry 95 100 98 07/28/21 05:31 07/28/21 09:31 Temperature 36.8 C 36.6 C Pulse Rate 69 74 Respiratory Rate 18 20 Blood Pressure 154/57 H 146/71 H Pulse Oximetry 98 98 Intake/Output Intake/Output: Intake & Output 07/25/21 07/26/21 07/27/21 07/28/21 23:59 23:59 23:59 23:59 Intake Total 1800 707 Output Total 200 Balance 1600 707 Meds/Results Medications: Active Medications Generic Name Dose Route Start Last Admin Trade Name Freq PRN Reason Stop Dose Admin Acetaminophen 500 mg 07/27/21 15:46 07/27/21 21:17 Acetaminophen 500 Mg Tablet PO 500 mg Q6H PRN Administration Mild Pain (1-3) or Fever Hydrocodone Bitart/Acetaminophen 1 tab 07/27/21 15:46 07/28/21 04:25 Hydrocodone/Acetaminophen (*Crx) 5-325 Mg Tablet PO 1 tab Q4H PRN Administration Pain Rated 4-6 Hydrocodone Bitart/Acetaminophen 1 tab 07/27/21 15:46 Hydrocodone/Acetaminophen (*Crx) 7.5-325 Mg Tablet PO Q4H PRN Pain Rated 7-10 Amlodipine Besylate 5 mg 07/28/21 10:15 Amlodipine Besylate 5 Mg Tablet PO DAILY [facility] Atorvastatin Calcium 10 mg 07/28/21 10:15 Atorvastatin 10 Mg Tablet PO DAILY [facility] Dextrose 12.5 gm 07/28/21 10:23 Dextrose 50% 25 Gm/50 Ml Syringe IV PUSH PRN PRN Hypoglycemia Protocol Glucagon 1 mg 07/28/21 10:23 Glucagon For Inj 1 Mg Vial IM PRN PRN Hypoglycemia Protocol Glucose 15 gm 07/28/21 10:23 Glucose Oral Gel 15 Gm Of Glucse In 37.5 Gm Tube PO PRN PRN Hypoglycemia Protocol Hydrochlorothiazide 12.5 mg 07/28/21 10:15 Hydrochlorothiazide 12.5 Mg Capsule PO DAILY [facility] Cefazolin Sodium 2 gm in 50 mls @ 100 mls/hr 07/27/21 22:00 07/28/21 05:38 Ancef 2 Gm/D5w 50 Ml IVPB 07/28/21 14:29 Infused Q8HR NANDINI Infusion Dextrose 1,000 mls @ 100 mls/hr 07/28/21 10:23 Dextrose 5% 1,000 Ml IVPB PRN PRN Hypoglycemia Protocol Latanoprost 1 drop 07/28/21 21:00 Latanoprost 0.005% Op Soln 2.5 Ml Btl EACH EYE HS [facility] Losartan Potassium 50 mg 07/28/21 10:15 Losartan Potassium 50 Mg Tablet PO DAILY [facility] Metformin HCl 500 mg 07/28/21 10:15 Metformin Hcl 500 Mg Tablet PO DAILY@0800 NANDINI Morphine Sulfate 2 mg 07/27/21 15:46 Morphine Sulfate (*Crx) 2 Mg/Ml Inj IV PUSH Q2H PRN Pain Rated
[2021-07-28] MEDS: amLODIPine BESYLATE 5 MG TABLET PO (12:58)
[2021-07-28] MEDS: POTASSIUM CHLORIDE 20 MEQ TABLET 40 MEQ PO (15:10)
[2021-07-28 16:09] LABS: Glucose Point of Care 127 mg/dl (65-105)
[2021-07-28] MEDS: LATANOPROST 0.005% OP SOLN 2.5 ML BTL 1 DROP EACH EYE (21:50)
[2021-07-28] MEDS: FAMOTIDINE 20 MG TABLET PO (21:53)
[2021-07-28 22:07] LABS: Glucose Point of Care 143 mg/dl (65-105)
[2021-07-29 05:43] VITALS: BP 157/68; PULSE 70; RESP 20; TEMP 36.8; O2SAT 98
[2021-07-29] MEDS: HYDROcodone/acetaminophen (*CRX) 5-325 MG TABLET 1 TAB PO (05:43)
[2021-07-29 07:25] LABS: Glucose Point of Care 171 mg/dl (65-105)
[2021-07-29 08:25] LABS: Anion Gap 8 mmol/L (8-16); Blood Urea Nitrogen 9 mg/dL (7-17); Calcium 8.7 mg/dL (8.4-10.2); Carbon Dioxide 27 mmol/L (22-30); Chloride 101 mmol/L (98-107); Estimated CRCL calculation 77 ml/min; Estimated Glomerular Filt Rate > 60; Glucose 209 mg/dL (65-110); Potassium 3.1 mmol/L (3.4-5.0); Sodium 136 mmol/L (137-145)
[2021-07-29] MEDS: polyethylene glycoL 3350 17 GM POWD.PACK PO (08:43)
[2021-07-29] MEDS: hydroCHLOROthiazide 12.5 MG CAPSULE PO (08:45)
[2021-07-29] MEDS: FAMOTIDINE 20 MG TABLET PO (08:45)
[2021-07-29] MEDS: ATORVASTATIN 10 MG TABLET PO (08:45)
[2021-07-29] MEDS: LOSARTAN POTASSIUM 50 MG TABLET PO (08:45)
[2021-07-29] MEDS: amLODIPine BESYLATE 5 MG TABLET PO (08:45)
--- NOTE | 2021-07-29 08:54 | PM.PNGS ---
Progress Note: A&P Assessment and Plan (1) SBO (small bowel obstruction): Code(s): K56.609 - Unspecified intestinal obstruction, unspecified as to partial versus complete obstruction Status: Acute Assessment and Plan: tolerating liquids and passing gas. Able to ambulate around the room fairly well. Is complaining of heartburn. Will start Protonix rather than Pepcid. Increase ambulation and advanced to low-fiber diet. Making good progress. Potassium 3.1 today. Will start regular supplementation and continue to monitor. (2) Incarcerated incisional hernia: Code(s): K43.0 - Incisional hernia with obstruction, without gangrene Status: Acute Assessment and Plan: Repaired 07/27/2021. (3) History of laparoscopic appendectomy: Code(s): Z90.49 - Acquired absence of other specified parts of digestive tract Status: Chronic Assessment and Plan: 07/24/2021 (4) BMI 45.0-49.9, adult: Code(s): Z68.42 - Body mass index [BMI] 45.0-49.9, adult Status: Chronic Subjective Subjective Date/Time Seen: 07/29/21 08:54 Post Op day: 2 Patient reports: no new complaints, pain is less, tolerating liquids well, flatus, no bowel movement and other (Having heartburn) Review of Systems Review of Systems: All systems reviewed & are unremarkable except as noted in HPI and below Constitutional: Constitutional: Denies chills, Denies excessive sweating, Denies fever(s) and Denies headache(s) Cardiovascular: Cardiovascular: Denies chest pain and Denies dyspnea Respiratory: Respiratory: Denies cough and Denies dyspnea Gastrointestinal: Gastrointestinal: Reports as per HPI, Denies bloating, Denies GI cramping, Reports heartburn and Denies nausea Neurologic: Denies confusion and Denies headache(s) Exam Const: General: comfortable and no acute distress; No confusion Orientation/consciousness: patient oriented x3 and No confusion GI: Inspection: non-distended, incision ( all incisions dry and intact) and obesity GI Palp: Yes Soft to palpation, Yes Tenderness to palpation present (GI) ( mild, appropriate incisional tenderness), No Guarding due to palpation present (GI) and No Rebound tenderness present Auscultation: normal bowel sounds Neuro: General: patient oriented x3, no focal motor deficits and No confusion Extrem: General: no calf tenderness and no edema Psych: Affect: normal affect Insight: Good insight present (Psych) Judgement: Good judgement present (Psych) Objective Data Vital Signs Vital Signs: Vital Signs - 24 hr 07/28/21 09:31 07/28/21 13:31 07/28/21 14:00 Temperature 36.6 C 36.2 C L 36.2 C L Pulse Rate 74 73 73 Respiratory Rate 20 18 18 Blood Pressure 146/71 H 155/93 H 155/93 H Pulse Oximetry 98 99 99 07/28/21 17:31 07/28/21 20:00 07/28/21 21:45 Temperature 37.2 C 37.4 C Pulse Rate 82 73 73 Respiratory Rate 20 20 20 Blood Pressure 133/66 184/74 H Pulse Oximetry 97 96 96 07/29/21 05:43 Temperature 36.8 C Pulse Rate 70 Respiratory Rate 20 Blood Pressure 157/68 H Pulse Oximetry 98 Intake/Output Intake/Output: Intake & Output 07/26/21 07/27/21 07/28/21 07/29/21 23:59 23:59 23:59 23:59 Intake Total 1800 1187 700 Output Total 200 Balance 1600 1187 700 Meds/Results Medications: Active Medications Generic Name Dose Route Start Last Admin Trade Name Dharmeshq PRN Reason Stop Dose Admin Acetaminophen 500 mg 07/27/21 15:46 07/27/21 21:17 Acetaminophen 500 Mg Tablet PO 500 mg Q6H PRN Administration Mild Pain (1-3) or Fever Hydrocodone Bitart/Acetaminophen 1 tab 07/27/21 15:46 07/29/21 05:43 Hydrocodone/Acetaminophen (*Crx) 5-325 Mg Tablet PO 1 tab Q4H PRN Administration Pain Rated 4-6 Hydrocodone Bitart/Acetaminophen 1 tab 07/27/21 15:46 Hydrocodone/Acetaminophen (*Crx) 7.5-325 Mg Tablet PO Q4H PRN Pain Rated 7-10 Amlodipine Besylate 5 mg 07/28/21 10:15 07/29/21 08:45
[2021-07-29] MEDS: ENOXAPARIN 40 MG/0.4 ML SYRINGE SUB-Q (10:32)
[2021-07-29] MEDS: POTASSIUM CHLORIDE 20 MEQ TABLET 40 MEQ PO (10:32)
[2021-07-29] MEDS: PANTOPRAZOLE 40 MG TABLET PO ×2 (10:32→21:05)
[2021-07-29 12:25] LABS: Glucose Point of Care 125 mg/dl (65-105)
[2021-07-29 14:10] VITALS: BP 159/70; PULSE 73; RESP 16; TEMP 37.4; O2SAT 98
--- NOTE | 2021-07-29 16:16 | PC.NURSE ---
On 07/29/21, the student, [ Haley Will], provided care and completed [facility] documentation on this patient. I have reviewed the student's documentation and agree with the findings.
[2021-07-29] MEDS: POTASSIUM CHLORIDE 20 MEQ TABLET.ER 40 MEQ PO (16:23)
[2021-07-29 17:24] LABS: Glucose Point of Care 146 mg/dl (65-105)
[2021-07-29] MEDS: LATANOPROST 0.005% OP SOLN 2.5 ML BTL 1 DROP EACH EYE (21:05)
[2021-07-29 22:00] VITALS: BP 137/82; PULSE 77; RESP 18; TEMP 37.4; O2SAT 98
[2021-07-30] VITALS (8 sets, daily range): BP systolic 126–189; BP diastolic 56–98; PULSE 66–74; RESP 18–20; TEMP 37.2–37.5; O2SAT 98–100
[2021-07-30 00:50] LABS: Glucose Point of Care 118 mg/dl (65-105)
[2021-07-30 06:47] LABS: Hematocrit 31.5 % (37.0-47.0); Hemoglobin 10.1 g/dL (12.0-15.0); Mean Corpuscular HGB Conc 32.1 g/dl (32-36); Mean Corpuscular Hemoglobin 24.6 pg (26-34); Mean Corpuscular Volume 76.8 fl (80-100); Mean Platelet Volume 9.9 fl (7.4-10.4); Platelet Count Result 290 k/mm3 (150-375); Red Cell Distribution Width 14.9 % (11.5-14.5)
[2021-07-30 07:12] LABS: Anion Gap 5 mmol/L (8-16); Blood Urea Nitrogen 7 mg/dL (7-17); Calcium 8.7 mg/dL (8.4-10.2); Carbon Dioxide 28 mmol/L (22-30); Chloride 102 mmol/L (98-107); Estimated CRCL calculation 77 ml/min; Estimated Glomerular Filt Rate > 60; Glucose 127 mg/dL (65-110); Potassium 3.7 mmol/L (3.4-5.0); Sodium 135 mmol/L (137-145)
[2021-07-30 08:24] LABS: Glucose Point of Care 149 mg/dl (65-105)
[2021-07-30] MEDS: POTASSIUM CHLORIDE 20 MEQ TABLET.ER 40 MEQ PO ×2 (08:32→16:25)
[2021-07-30] MEDS: hydroCHLOROthiazide 12.5 MG CAPSULE PO (08:32)
[2021-07-30] MEDS: ENOXAPARIN 40 MG/0.4 ML SYRINGE SUB-Q (08:32)
[2021-07-30] MEDS: LOSARTAN POTASSIUM 50 MG TABLET PO (08:32)
[2021-07-30] MEDS: ATORVASTATIN 10 MG TABLET PO (08:32)
[2021-07-30] MEDS: amLODIPine BESYLATE 5 MG TABLET PO (08:32)
[2021-07-30] MEDS: PANTOPRAZOLE 40 MG TABLET PO ×2 (08:32→20:36)
[2021-07-30] MEDS: polyethylene glycoL 3350 17 GM POWD.PACK PO (08:33)
[2021-07-30 12:01] LABS: Glucose Point of Care 130 mg/dl (65-105)
--- NOTE | 2021-07-30 12:34 | PM.PNGS ---
Progress Note: A&P Assessment and Plan (1) Abdominal pain of unknown cause: Code(s): R10.9 - Unspecified abdominal pain Status: Acute Assessment and Plan: Having abdominal pain that was not present yesterday. Also some suggestion of nausea. Tender over the midline of the abdomen but no palpable recurrent hernia. Will get stat CT abdomen and pelvis. Exam not reliable due to obesity. Could have recurrent SBO or ileus. Further treatment pending results of CT scan. Labs look okay today. (2) Incarcerated incisional hernia: Code(s): K43.0 - Incisional hernia with obstruction, without gangrene Status: Acute (3) SBO (small bowel obstruction): Code(s): K56.609 - Unspecified intestinal obstruction, unspecified as to partial versus complete obstruction Status: Acute Subjective Subjective Date/Time Seen: 07/30/21 12:34 Post Op day: 3 Patient reports: still having pain (pain worse, in epigastric area and down middle abdomen, moves), flatus, no bowel movement and nausea (feels like fluid back of throat) Review of Systems Review of Systems: All systems reviewed & are unremarkable except as noted in HPI and below Constitutional: Constitutional: Denies chills, Denies fever(s) and Denies headache(s) Gastrointestinal: Gastrointestinal: Reports as per HPI, Reports abdominal pain, Reports constipation and Reports nausea Neurologic: Denies confusion and Denies headache(s) Exam Resp: Effort & Inspection: normal respiratory effort Auscultation: clear to auscultation bilaterally Cardio: Rate: regular rate Rhythm: regular rhythm GI: Inspection: distended, incision (healing well) and no visible herniation GI Palp: Yes Soft to palpation, Yes Tenderness to palpation present (GI) (entire mid abdomen), No Guarding due to palpation present (GI), No Hernia present and No Rebound tenderness present Neuro: General: patient oriented x3, no focal motor deficits and No confusion Extrem: General: no calf tenderness and no edema Psych: Affect: normal affect Insight: Good insight present (Psych) Judgement: Good judgement present (Psych) Objective Data Vital Signs Vital Signs: Vital Signs - 24 hr 07/29/21 14:10 07/29/21 22:00 07/30/21 05:32 Temperature 37.4 C 37.4 C 37.2 C Pulse Rate 73 77 73 Respiratory Rate 16 18 18 Blood Pressure 159/70 H 137/82 126/72 Pulse Oximetry 98 98 98 07/30/21 10:19 07/30/21 10:24 07/30/21 10:29 Temperature 37.3 C 37.3 C Pulse Rate 74 74 74 Respiratory Rate 18 18 18 Blood Pressure 189/77 H Pulse Oximetry 100 100 100 07/30/21 10:39 07/30/21 12:03 Temperature 37.3 C Pulse Rate 74 Respiratory Rate 18 Blood Pressure 189/77 H 158/95 H Pulse Oximetry 100 Intake/Output Intake/Output: Intake & Output 07/27/21 07/28/21 07/29/21 07/30/21 23:59 23:59 23:59 23:59 Intake Total 1800 1187 1930 580 Output Total 200 Balance 1600 1187 1930 580 Meds/Results Medications: Active Medications Generic Name Dose Route Start Last Admin Trade Name Freq PRN Reason Stop Dose Admin Acetaminophen 500 mg 07/27/21 15:46 07/27/21 21:17 Acetaminophen 500 Mg Tablet PO 500 mg Q6H PRN Administration Mild Pain (1-3) or Fever Hydrocodone Bitart/Acetaminophen 1 tab 07/27/21 15:46 07/29/21 05:43 Hydrocodone/Acetaminophen (*Crx) 5-325 Mg Tablet PO 1 tab Q4H PRN Administration Pain Rated 4-6 Hydrocodone Bitart/Acetaminophen 1 tab 07/27/21 15:46 Hydrocodone/Acetaminophen (*Crx) 7.5-325 Mg Tablet PO Q4H PRN Pain Rated 7-10 Amlodipine Besylate 5 mg 07/28/21 10:15 07/30/21 08:32 Amlodipine Besylate 5 Mg Tablet PO 5 mg DAILY NANDINI Administration Atorvastatin Calcium 10 mg 07/28/21 10:15 07/30/21 08:32 Atorvastatin 10 Mg Tablet PO 10 mg DAILY NANDINI Administration Dextrose 12.5 gm 07/28/21 10:23 Dextrose 50% 25 Gm/50 Ml Syringe IV PUSH PRN PRN Hypoglycemia Protocol Enoxaparin Sod
--- NOTE | 2021-07-30 15:40 | PC.NURSE ---
On 07/30/21, the student, Annika Matias, provided care and completed [facility] documentation on this patient. I have reviewed the student's documentation and agree with the findings.
[2021-07-30] MEDS: BISACODYL 10 MG SUPPOSITORY RECTAL (15:47)
[2021-07-30 16:55] LABS: Glucose Point of Care 120 mg/dl (65-105)
[2021-07-30] MEDS: LATANOPROST 0.005% OP SOLN 2.5 ML BTL 1 DROP EACH EYE (20:36)
[2021-07-30 21:21] LABS: Glucose Point of Care 141 mg/dl (65-105)
[2021-07-31] MEDS: ONDANSETRON INJ 4 MG/2 ML VIAL IV PUSH (01:16)
[2021-07-31 05:57] VITALS: BP 149/68; PULSE 72; RESP 18; TEMP 37.2; O2SAT 100
[2021-07-31 08:00] VITALS: PULSE 72; RESP 18; O2SAT 100
[2021-07-31 08:17] LABS: Glucose Point of Care 80 mg/dl (65-105)
[2021-07-31] MEDS: ATORVASTATIN 10 MG TABLET PO (08:42)
[2021-07-31] MEDS: ENOXAPARIN 40 MG/0.4 ML SYRINGE SUB-Q (08:44)
[2021-07-31] MEDS: amLODIPine BESYLATE 5 MG TABLET PO (08:44)
[2021-07-31] MEDS: PANTOPRAZOLE 40 MG TABLET PO ×2 (08:45→21:35)
[2021-07-31] MEDS: LOSARTAN POTASSIUM 50 MG TABLET PO (08:45)
[2021-07-31] MEDS: hydroCHLOROthiazide 12.5 MG CAPSULE PO (08:45)
[2021-07-31 11:23] LABS: Glucose Point of Care 145 mg/dl (65-105)
[2021-07-31] MEDS: POTASSIUM CHLORIDE 20 MEQ TABLET.ER 40 MEQ PO ×2 (11:34→17:33)
[2021-07-31] MEDS: polyethylene glycoL 3350 17 GM POWD.PACK PO (11:37)
--- NOTE | 2021-07-31 12:35 | PM.PNGS ---
Progress Note: A&P Assessment and Plan (1) Abdominal pain of unknown cause: Code(s): R10.9 - Unspecified abdominal pain Status: Acute Assessment and Plan: Pain much better today. CT scan suggestive more of ileus than anything else. No evidence of recurrent small bowel obstruction. Patient was given a duplex suppository and did have a bowel movement. She feels much better today. Encouraged her to ambulate. If does well today could possibly go home tomorrow. (2) Incarcerated incisional hernia: Code(s): K43.0 - Incisional hernia with obstruction, without gangrene Status: Acute (3) SBO (small bowel obstruction): Code(s): K56.609 - Unspecified intestinal obstruction, unspecified as to partial versus complete obstruction Status: Acute Subjective Subjective Date/Time Seen: 07/31/21 12:35 Post Op day: 4 Patient reports: feels better, pain is less and bowel movement (After suppository yesterday) Exam GI: Inspection: incision (Dry and healing well) and obesity GI Palp: Yes Soft to palpation (Much softer today), Yes Tenderness to palpation present (GI) (Much less tender today), No Hernia present and No Palpable mass present Auscultation: Hypoactive bowel sounds present Objective Data Vital Signs Vital Signs: Vital Signs - 24 hr 07/30/21 14:58 07/30/21 21:38 07/31/21 05:57 Temperature 37.5 C 37.4 C 37.2 C Pulse Rate 71 66 72 Respiratory Rate 18 20 18 Blood Pressure 154/98 H 147/56 H 149/68 H Pulse Oximetry 100 100 100 07/31/21 08:00 Temperature Pulse Rate 72 Respiratory Rate 18 Blood Pressure Pulse Oximetry 100 Intake/Output Intake/Output: Intake & Output 07/28/21 07/29/21 07/30/21 07/31/21 23:59 23:59 23:59 23:59 Intake Total 1187 1930 1700 580 Balance 1187 1930 1700 580 Meds/Results Medications: Active Medications Generic Name Dose Route Start Last Admin Trade Name Freq PRN Reason Stop Dose Admin Acetaminophen 500 mg 07/27/21 15:46 07/27/21 21:17 Acetaminophen 500 Mg Tablet PO 500 mg Q6H PRN Administration Mild Pain (1-3) or Fever Hydrocodone Bitart/Acetaminophen 1 tab 07/27/21 15:46 07/29/21 05:43 Hydrocodone/Acetaminophen (*Crx) 5-325 Mg Tablet PO 1 tab Q4H PRN Administration Pain Rated 4-6 Hydrocodone Bitart/Acetaminophen 1 tab 07/27/21 15:46 Hydrocodone/Acetaminophen (*Crx) 7.5-325 Mg Tablet PO Q4H PRN Pain Rated 7-10 Amlodipine Besylate 5 mg 07/28/21 10:15 07/31/21 08:44 Amlodipine Besylate 5 Mg Tablet PO 5 mg DAILY NANDINI Administration Atorvastatin Calcium 10 mg 07/28/21 10:15 07/31/21 08:42 Atorvastatin 10 Mg Tablet PO 10 mg DAILY NANDINI Administration Dextrose 12.5 gm 07/28/21 10:23 Dextrose 50% 25 Gm/50 Ml Syringe IV PUSH PRN PRN Hypoglycemia Protocol Enoxaparin Sodium 40 mg 07/29/21 09:00 07/31/21 08:44 Enoxaparin 40 Mg/0.4 Ml Syringe SUB-Q 40 mg DAILY NANDINI Administration Glucagon 1 mg 07/28/21 10:23 Glucagon For Inj 1 Mg Vial IM PRN PRN Hypoglycemia Protocol Glucose 15 gm 07/28/21 10:23 Glucose Oral Gel 15 Gm Of Glucse In 37.5 Gm Tube PO PRN PRN Hypoglycemia Protocol Hydrochlorothiazide 12.5 mg 07/28/21 10:15 07/31/21 08:45 Hydrochlorothiazide 12.5 Mg Capsule PO 12.5 mg DAILY NANDINI Administration Dextrose 1,000 mls @ 100 mls/hr 07/28/21 10:23 Dextrose 5% 1,000 Ml IVPB PRN PRN Hypoglycemia Protocol Latanoprost 1 drop 07/28/21 21:00 07/30/21 20:36 Latanoprost 0.005% Op Soln 2.5 Ml Btl EACH EYE 1 drop HS NANDINI Administration Losartan Potassium 50 mg 07/28/21 10:15 07/31/21 08:45 Losartan Potassium 50 Mg Tablet PO 50 mg DAILY NANDINI Administration Metformin HCl 500 mg 07/28/21 10:15 07/28/21 16:08 Metformin Hcl 500 Mg Tablet PO Not Given DAILY@0800 NANDINI Morphine Sulfate 2 mg 07/27/21 15:46 Morphine Sulfate (*Crx) 2 Mg/Ml Inj IV P
[2021-07-31 14:00] VITALS: BP 142/65; PULSE 81; RESP 16; TEMP 36.4; O2SAT 100
[2021-07-31 17:57] LABS: Glucose Point of Care 128 mg/dl (65-105)
[2021-07-31 19:46] VITALS: O2SAT 100
[2021-07-31] MEDS: LATANOPROST 0.005% OP SOLN 2.5 ML BTL 1 DROP EACH EYE (21:35)
[2021-07-31 22:00] VITALS: BP 127/56; PULSE 72; RESP 18; TEMP 37.1; O2SAT 95
[2021-07-31 23:04] LABS: Glucose Point of Care 142 mg/dl (65-105)
[2021-08-01] MEDS: ONDANSETRON INJ 4 MG/2 ML VIAL IV PUSH (03:51)
[2021-08-01 06:00] VITALS: BP 139/62; PULSE 66; RESP 18; TEMP 37; O2SAT 100
[2021-08-01 06:30] LABS: Hematocrit 33.5 % (37.0-47.0); Hemoglobin 10.8 g/dL (12.0-15.0); Mean Corpuscular HGB Conc 32.2 g/dl (32-36); Mean Corpuscular Hemoglobin 25.3 pg (26-34); Mean Corpuscular Volume 78.5 fl (80-100); Mean Platelet Volume 9.2 fl (7.4-10.4); Platelet Count Result 314 k/mm3 (150-375); Red Blood Count 4.27 M/mm3 (4.2-5.4); Red Cell Distribution Width 15.2 % (11.5-14.5); White Blood Count 6.1 K/mm3 (4.5-10.0)
[2021-08-01 06:44] LABS: Anion Gap 4 mmol/L (8-16); Blood Urea Nitrogen 9 mg/dL (7-17); Calcium 9.3 mg/dL (8.4-10.2); Carbon Dioxide 29 mmol/L (22-30); Chloride 103 mmol/L (98-107); Estimated CRCL calculation 68 ml/min; Estimated Glomerular Filt Rate > 60; Glucose 130 mg/dL (65-110); Potassium 4.3 mmol/L (3.4-5.0); Sodium 136 mmol/L (137-145)
[2021-08-01 08:00] VITALS: PULSE 66; RESP 18; O2SAT 100
[2021-08-01 08:03] LABS: Glucose Point of Care 110 mg/dl (65-105)
[2021-08-01 08:28] LABS: Glucose Point of Care 142 mg/dl (65-105)
--- NOTE | 2021-08-01 09:02 | PM.DS ---
DS: Admitting Diagnosis Discharge Date August 01, 2021 Admitting Diagnosis Incarcerated incisional hernia with small-bowel obstruction History laparoscopic appendectomy Morbid obesity-BMI 46 DS: Discharge Diagnosis Discharge Diagnosis (1) Incarcerated incisional hernia: Code(s): K43.0 - Incisional hernia with obstruction, without gangrene Status: Acute Assessment and Plan: Repair with relief of small-bowel obstruction 07/27/2021. Trocar site hernia with incarceration and small-bowel obstruction. (2) SBO (small bowel obstruction): Code(s): K56.609 - Unspecified intestinal obstruction, unspecified as to partial versus complete obstruction Status: Acute (3) History of laparoscopic appendectomy: Code(s): Z90.49 - Acquired absence of other specified parts of digestive tract Status: Chronic Assessment and Plan: For abnormal appendix on CT, risk of neoplasm. Pathology showed benign fibro obliterative changes. No cancer. Performed on 07/24/2021 (4) BMI 45.0-49.9, adult: Code(s): Z68.42 - Body mass index [BMI] 45.0-49.9, adult Status: Chronic DS: Summary Hospital Course Hospital Course: Patient underwent laparoscopic appendectomy for abnormal appendix and possible neoplasm on 07/24/2021. The surgery went well. Pathology on the appendix showed fibrous obliteration with no evidence of neoplasm. Following surgery, the patient went home that day. She went on to develop nausea vomiting but very little abdominal pain. Her symptoms got worse and she came back to the emergency room on 07/27/2021. Evaluation there showed an incarcerated trocar site incisional hernia in the lower abdomen. 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 The bowel was viable and the hernia was repaired. Postoperatively, the patient had a fairly slow return of bowel function with mild ileus. She had some abdominal pain on postop day number 3. Repeat CT scan showed mild ileus but no evidence of recurrent obstruction. She received dulcolax suppository and her bowel function returned normally there after. She was eating solid food and taking no pain medication on postop day 5. 08/01/2021. Her wounds were healing well. She is discharged now in good condition. Review of the operative report from 07/24/2021 showed that the trocar site where the hernia occurred had been closed in surgery at the fascial level. On re-exploration, it appeared that this suture had broke or come loose. This resulted in the subsequent herniation and obstruction. Status at Discharge Functional status at discharge: independent ambulation Overall status at discharge: patient is progressing back to baseline Time Spent with Patient Time attestation: Total time spent providing and/or coordinating discharge services: Exam GI: Inspection: non-distended, incision (All incisions dry and healing well) and obesity GI Palp: Yes Soft to palpation, Yes Tenderness to palpation present (GI) (Mild appropriate tenderness at incisions), No Guarding due to palpation present (GI), No Hernia present, No Palpable mass present and No Rebound tenderness present Auscultation: normal bowel sounds DS: Data Data Completed and Pending Labs on day of discharge: Labs from last 24 hours 08/01/21 08/01/21 08/01/21 08:12 07:55 06:09 WBC RBC Hgb Hct MCV MCH MCHC RDW Plt Count MPV Sodium 136 L Potassium 4.3 Chloride 103 Carbon Dioxide 29 Anion Gap 4 L BUN 9 Creatinine 0.80 Estim Creat Clear Calc 68 Estimated GFR > 60 Glucose 130 H POC Capillary Glucose 142 H 110 H Calcium 9.3 08/01/21 07/31/21 07/31/21 06:09 21:32 17:54 WBC 6.1 RBC 4.27 Hgb 10.8 L Hct 33.5 L MCV 78.5 L MCH 25.3 L MCHC 32.2 RDW 15.2 H Plt Count 314 MPV 9.2 Sodium Potassium Chloride Carbon Dioxide Anion Gap BUN Creatini
[2021-08-01] MEDS: ATORVASTATIN 10 MG TABLET PO (09:44)
[2021-08-01] MEDS: ENOXAPARIN 40 MG/0.4 ML SYRINGE SUB-Q (09:44)
[2021-08-01] MEDS: PANTOPRAZOLE 40 MG TABLET PO (09:44)
[2021-08-01] MEDS: POTASSIUM CHLORIDE 20 MEQ TABLET.ER 40 MEQ PO (09:45)
[2021-08-01] MEDS: amLODIPine BESYLATE 5 MG TABLET PO (09:47)
[2021-08-01] MEDS: hydroCHLOROthiazide 12.5 MG CAPSULE PO (09:47)
[2021-08-01] MEDS: LOSARTAN POTASSIUM 50 MG TABLET PO (09:47)
== END 2021-08-01 12:00 | disposition home or self-care (01) | DRG 354 ==
LOC: ANHED 12:03 → ANHSURGERY 12:19 → ANH3MEDSUR 15:48 → ANHSURGERY 07-28 15:27 → ANH3MEDSUR 07-28 15:27
PROVIDERS: Physician Assistant; Admitting Provider Surgery; Emergency Provider Emergency Medicine; PCP Internal Medicine; Visit Provider Surgery
PROC: 0WQF0ZZ Repair Abdominal Wall, Open Approach (ICD-10-PCS; principal; 2021-07-27 13:15)
DX: K43.0 Incisional hernia with obstruction, without gangrene (principal); Z68.42 Body mass index [BMI] 45.0-49.9, adult; K56.7 Ileus, unspecified; E66.01 Morbid (severe) obesity due to excess calories; Z98.890 Other specified postprocedural states; Z90.49 Acquired absence of other specified parts of digestive tract; N83.202 Unspecified ovarian cyst, left side; I10 Essential (primary) hypertension; E11.9 Type 2 diabetes mellitus without complications; E78.00 Pure hypercholesterolemia, unspecified; Z79.84 Long term (current) use of oral hypoglycemic drugs; Z79.899 Other long term (current) drug therapy
CPT/HCPCS: 36415; 71046; 74176; 74177; 80048; 80053; 82948; 83605; 83690; 84484; 85025; 85027; 85610; 85730; 93005; 96361; 96365; 96375; 99285; A9270; C9113; G0378; J0330; J0690; J1100; J1650; J2405; J2550; J2704; J3010; J7030; J7120; Q9967